=== PATIENT | male | born 1950 | race Caucasian/White ===

== ENCOUNTER 2018-04-12 10:01 | Inpatient (IN) | payer MEDICARE, BC ==
[~2018-04-12] VITALS: Ht 172.7 cm; Wt 102.0 kg
[2018-06-04] MEDS ORDERED: ANUSOL-HC SUPPO25 MG RC (10:13)
[2018-06-04] MEDS ORDERED: TYLENOL 325MG325 MG PO (10:14)
[2018-06-04] MEDS ORDERED: CEPHALEXIN500 M1 PO (10:15)
[2018-06-04] MEDS ORDERED: CALCIUM 600MG+D1 TAB PO (10:15)
[2018-06-04] MEDS ORDERED: TRIGLIDE160 M1 PO (10:16)
[2018-06-04] MEDS ORDERED: HCTZ 25MG TAB25 MG PO (10:19)
[2018-06-04] MEDS ORDERED: BENICAR40 MG PO (10:21)
[2018-06-04] MEDS ORDERED: COZAAR100 MG PO (10:21)
[2018-06-04] MEDS ORDERED: ULTRAM 50MG TAB50 MG PO (10:22)
[2018-06-04] MEDS ORDERED: VIAGRA 25MG TAB25 MG PO (10:22)
[2018-06-04] MEDS ORDERED: VOLTAREN GEL 1%1 TU TP (10:26)
[2018-06-05] VITALS (11 sets, daily range): BP systolic 112–153; BP diastolic 61–87; PULSE 60–87; TEMP 97.5–98.7
[2018-06-05] MEDS ORDERED: FOLIC ACID0.4 MG PO (05:36)
[2018-06-05] MEDS ORDERED: NATURAL IRON65 MG PO (05:37)
[2018-06-06] VITALS (8 sets, daily range): BP systolic 143–190; BP diastolic 60–90; PULSE 77–92; TEMP 97.5–98.6
[2018-06-06 07:36] LABS: HEMOGLOBIN 11.7 g/dl (13.5-18.0)
[2018-06-06 07:41] LABS: HEMATOCRIT 33.4 % (42.0-52.0)
[2018-06-07 04:30] VITALS: BP 136/74; PULSE 90; TEMP 98.1
[2018-06-07 06:25] LABS: HEMOGLOBIN 11.8 g/dl (13.5-18.0)
[2018-06-07 06:26] LABS: HEMATOCRIT 32.5 % (42.0-52.0)
[2018-06-07] MEDS ORDERED: ASPI325T6 PO (06:50)
[2018-06-07] MEDS ORDERED: NORCO 325 MG-7.1 TAB PO (06:50)
[2018-06-07] MEDS ORDERED: TYLENOL 500MG500 MG PO (06:51)
[2018-06-07] MEDS ORDERED: ROXICODONE 55 MG/TAB PO (06:51)
[2018-06-07] MEDS ORDERED: COLACE 100100 MG/CAP PO (06:52)
[2018-06-07 07:30] VITALS: BP 138/63; PULSE 82; TEMP 97.7
[2018-06-07 11:21] VITALS: BP 130/64; PULSE 81
== END 2018-06-07 14:50 | disposition home or self-care (01) | DRG 470 ==
LOC: JCC 06-05 05:12
PROVIDERS: Orthopaedic Surgery
PROC: 0SRD0J9 Replacement of Left Knee Joint with Synthetic Substitute, Cemented, Open Approach (ICD-10-PCS; principal; 2018-06-05 07:30)
DX: M17.12 Unilateral primary osteoarthritis, left knee (principal); I10 Essential (primary) hypertension
CPT/HCPCS: A4314; A9284; C1713; C1776; J0690; J2250; J2704; J7030; J7120

== ENCOUNTER 2020-02-05 12:15 | Observation (INO) | payer MEDICARE, BC ==
[~2020-02-05] VITALS: Ht 172.7 cm; Wt 78.0 kg
[~2020-02-05 12:15] MED LIST: ANUSOL-HC SUPPO25 MG RC; ASPI325T6 PO; BENICAR40 MG PO; CALCIUM 600MG+D1 TAB PO; CEPHALEXIN500 M1 PO; COLACE 100100 MG/CAP PO; COZAAR100 MG PO; FOLIC ACID0.4 MG PO; HCTZ 25MG TAB25 MG PO; NATURAL IRON65 MG PO; NORCO 325 MG-7.1 TAB PO; ROXICODONE 55 MG/TAB PO; TRIGLIDE160 M1 PO; TYLENOL 325MG325 MG PO; TYLENOL 500MG500 MG PO; ULTRAM 50MG TAB50 MG PO; VIAGRA 25MG TAB25 MG PO; VOLTAREN GEL 1%1 TU TP
[2020-03-02] VITALS (13 sets, daily range): BP systolic 74–174; BP diastolic 50–79; PULSE 62–107; TEMP 97.5–98.4
[2020-03-02] MEDS ORDERED: NATURAL VITAM1000 MG PO (03:10)
[2020-03-02] MEDS ORDERED: EPIDIOLEX100 MG/1 M PO (03:11)
[2020-03-02] MEDS ORDERED: DICLOZOR1 EACH TP (03:15)
[2020-03-02] MEDS ORDERED: CYMBALTA 30MG30 MG PO (03:16)
[2020-03-02] MEDS ORDERED: ASPERCREME1 EACH TP (03:18)
[2020-03-02] MEDS ORDERED: BENICAR40 MG PO ×2 (03:19→03:26)
[2020-03-02] MEDS ORDERED: PROCTOZONE-HC2.5% RC (03:20)
--- NOTE | 2020-03-02 05:40 | NUR ---
To room 329-ambulated with spouse. Oriented to room/policy. Admission assessment complete. Surgical scrub to right hip/pedal pulses marked/ADOLFO to LLE. Attempt made by this nurse to start IV-2 attempts. Attempt also made by JEFFREY Rowe x1. print line supervisor notified of need for IV. Preop meds given. Denies needs. Call light in reach. Will monitor
--- NOTE | 2020-03-02 10:41 | NUR ---
PT TO FLOOR @ 1030 TO ROOM 329 WITH REPORT FROM IDANIA MURPHY PACU AT THAT TIME. PT IS A/O X3 LUNGS CTS, BOWEL SOUNDS PRESENT BUT HYPO, DRESSING TO RIGH HIP CDI WITH FOAM TAPE OVER ABDS. IV TO PUMP AND PT PLACED ON O2 @ 2 L PNC. PEDAL PULSES PALPABLE.
--- NOTE | 2020-03-02 12:09 | NUR ---
First visit from the hand inspector. No needs right now.
--- NOTE | 2020-03-02 14:16 | NUR ---
MILVIA met with the patient and his , Bernadette (ph#[phone]), to discuss discharge plan. The patient lives outside of [place] with his . He reports independence with ADLs and has a walker, rolaider, and cane. The patient's PCP is Dr. Tor Ingram and he receives his medications at [facility]. He reports no difficulties obtaining his meds. The patient does not have advanced directives in EMR, but he reports that he does have them completed. His states that she is his DPOA-HC. The patient plans to return home with his and receive outpatient PT in [place]. No additional needs at this time.
--- NOTE | 2020-03-02 17:21 | NUR ---
PT SLEEPING AT THIS TIME.
--- NOTE | 2020-03-02 18:54 | NUR ---
Report to Yasmin MURPHY.
--- NOTE | 2020-03-02 20:00 | NUR ---
Report received. Assumed care for manager bench. A&Ox3. Assessment complete. VS stable. Denies pain/nausea/shortness of breath. Left forearm IV with NS@75ml/hr. Dressing to right hip CDI-bulky white/foam tape. TEDs/SCDs bilat. Plan of care discussed for ambulation/pain control. Verbalizes understanding-denies questions/concerns. Call light in reach. Will monitor.
--- NOTE | 2020-03-02 21:30 | NUR ---
Up to ambulate at this time with stand by assist/walker/gait belt. Amublated approx 150 feet-tolerated well. Oxycodone 10mg given per dr order post ambulation for pain rated 7/10 to right hip described as constant ache. Call light in reach. Will monitor
[2020-03-03 04:39] VITALS: BP 149/76; PULSE 87; TEMP 98.6
--- NOTE | 2020-03-03 05:17 | NUR ---
Rested well this shift. Denied nausea/shortness of breath. VS remained stable. Voiding without difficulty/tolerating PO. IV INTd at this time. Received one dose of PO pain meds this shift with good results. TEDS/SCDs bilat. Dressing to right hip CDI-bulky white/foam tape. Fresh ice pack applied to right hip. Call light in reach will monitor.
[2020-03-03 06:49] LABS: HEMOGLOBIN 12.5 g/dl (13.5-18.0)
[2020-03-03 06:55] LABS: HEMATOCRIT 36.1 % (42.0-52.0)
[2020-03-03] MEDS ORDERED: CELEBREX 200MG200 MG PO (07:06)
[2020-03-03] MEDS ORDERED: ASPI325T6 PO (07:06)
[2020-03-03] MEDS ORDERED: ROXICODONE 55 MG/TAB PO (07:07)
[2020-03-03] MEDS ORDERED: SENOKOT S 50 MG1 TAB PO (07:07)
[2020-03-03 07:31] VITALS: BP 146/66; PULSE 92; TEMP 98.5
--- NOTE | 2020-03-03 09:44 | NUR ---
PT ATE 100 % OF BREAKFAST. WORKED WITH PHYSICAL THERAPY. COMPLETED STAIR TRAINING. PAIN WELL CONTROLLED WITH PO MEDS. PLAN ON DISCHARGE LATER TODAY.
[2020-03-03 11:34] VITALS: BP 164/72; PULSE 89; TEMP 97.5
--- NOTE | 2020-03-03 13:29 | NUR ---
The patient was downgraded to observation status. SW met with the patient and his to inform. SW also presented and read the [employer] form outloud to the patient and his . The patient verbalized understanding and gave SW approval to sign the form on his behalf. SW provided him with a copy. No additional needs at this time.
== END 2020-03-03 13:52 | disposition home or self-care (01) ==
LOC: JCC 03-02 05:24
PROVIDERS: ADMIT Orthopaedic Surgery
DX: M16.11 Unilateral primary osteoarthritis, right hip (principal); I10 Essential (primary) hypertension; G47.33 Obstructive sleep apnea (adult) (pediatric); M81.0 Age-related osteoporosis without current pathological fracture; E78.00 Pure hypercholesterolemia, unspecified; R12 Heartburn; Z87.891 Personal history of nicotine dependence; Z79.899 Other long term (current) drug therapy; Z88.0 Allergy status to penicillin; Z88.2 Allergy status to sulfonamides; Z88.8 Allergy status to other drugs, medicaments and biological substances
CPT/HCPCS: A4314; A9284; C1713; C1776; J0690; J1100; J2250; J2370; J2405; J2704; J3010; J7030; J7120

== ENCOUNTER → 2020-02-24 | Outpatient (CLI) | payer MEDICARE, BC ==
[~2020-02-24] MED LIST changes: +ASPERCREME1 EACH TP; +CELEBREX 200MG200 MG PO; +CYMBALTA 30MG30 MG PO; +DICLOZOR1 EACH TP; +EPIDIOLEX100 MG/1 M PO; +NATURAL VITAM1000 MG PO; +PROCTOZONE-HC2.5% RC; +SENOKOT S 50 MG1 TAB PO
== END ==
LOC: COL.LAB 11:33
DX: Z01.812 Encounter for preprocedural laboratory examination (principal); Z01.83 Encounter for blood typing; M16.11 Unilateral primary osteoarthritis, right hip

== ENCOUNTER → 2020-07-01 | Outpatient (CLI) | payer MEDICARE, BC | LOC: COL.LAB | DX: Z01.812 Encounter for preprocedural laboratory examination (principal); Z01.83 Encounter for blood typing; M16.12 Unilateral primary osteoarthritis, left hip ==